=== PATIENT | male | born 1990 | race Caucasian/White ===

== ENCOUNTER 2017-03-12 09:59 | Day surgery (SDC) | payer OTHER ==
[2017-03-10 14:14] VITALS: BMI 31.7
[2017-03-12] MEDS ORDERED: PROPOFOL 20 ML ONE (10:49)
[2017-03-12] MEDS ORDERED: LIDOCAINE HCL/PF 2% SDV 5ML VIAL ONE (10:50)
[2017-03-12 12:06] VITALS: TEMP 97.6
[2017-03-12 12:48] VITALS: BP 112/56; PULSE 71
--- NOTE | 2017-03-14 12:51 | PATH ---
Surgical Pathology Report Patient Name: ANASTASIA NUGENT [facility]. Rec. #: [id number] /Age/Gender: 1990 (Age: 26) / M Account: [id number] Location: [facility]-ENDOSCOPY Taken: 03/12/2017 Received: 03/12/2017 Reported: 03/14/2017 Physicians: Gege Nuno M.D. Specimen(s) Received A: SECOND PORTION DUODENUM B: BX ANTRUM C: BX GE JUNCTION Clinical History Dyspepsia Rule out celiac disease, rule out gastritis, rule out GERD Final Diagnosis A. DUODENUM, SECOND PORTION, BIOPSY: DUODENAL MUCOSA WITH NO PATHOLOGIC CHANGES. NO HISTOLOGIC EVIDENCE OF GLUTEN SENSITIVE ENTEROPATHY (CELIAC SPRUE) IDENTIFIED. B. STOMACH, ANTRUM, BIOPSY: MILD CHRONIC GASTRITIS. IMMUNOSTAIN FOR H. PYLORI IS NEGATIVE. C. GE JUNCTION, BIOPSY: GASTRIC TYPE MUCOSA WITH CHRONIC INFLAMMATION. NO INTESTINAL METAPLASIA IDENTIFIED (NO PEREZ'S IDENTIFIED). Electronically Signed Maximo Herrera M.D. Gross Description A. Received in formalin, labeled "second portion of duodenum" are 3 freedman, irregular portions of soft tissue ranging from 0.2-0.4 cm. in greatest dimension. The specimens are submitted in toto in one cassette. B. Received in formalin, labeled "antrum" are 2 freedman, irregular portions of soft tissue measuring 0.3 and 0.4 cm. in greatest dimension. The specimens are submitted in toto in one cassette. C. Received in formalin, labeled "GE junction" are 2 freedman, irregular portions of soft tissue measuring 0.1 and 0.2 cm. in greatest dimension. The specimens are submitted in toto in one cassette. 03/13/201703/13/2017
== END 2017-03-12 12:45 | disposition home or self-care (01) ==
LOC: FASU-ENDO 09:59
PROVIDERS: ATTEND Internal Medicine Gastroenterology
PROC: 0DB58ZX Excision of Esophagus, Via Natural or Artificial Opening Endoscopic, Diagnostic (ICD-10-PCS; 2017-03-12)
PROC: 0DB98ZX Excision of Duodenum, Via Natural or Artificial Opening Endoscopic, Diagnostic (ICD-10-PCS; principal; 2017-03-12 11:29)
PROC: 0DB68ZX Excision of Stomach, Via Natural or Artificial Opening Endoscopic, Diagnostic (ICD-10-PCS; 2017-03-12 11:29)
DX: K29.50 Unspecified chronic gastritis without bleeding (principal); R10.13 Epigastric pain; K31.9 Disease of stomach and duodenum, unspecified
CPT/HCPCS: 88305-TC; 88342-TC

== ENCOUNTER 2017-07-01 22:05 | Emergency (ER) | payer BC, OTHER ==
[2017-07-01 22:25] VITALS: BP 125/88; PULSE 81; TEMP 97.7; BMI 31.0
[2017-07-01] MEDS ORDERED: TETANUS AND DIPHTHERIA TOXOID 0.5 ML DISP.SYRIN IM ONE (22:41)
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
--- NOTE | 2017-07-01 22:55 | PDOC ---
*Physical Exam - Vital Signs Last Vital Signs Temp Pulse Resp BP Pulse Ox 97.7 F 81 19 125/88 98 07/01/17 22:15 07/01/17 22:15 07/01/17 22:15 07/01/17 22:15 07/01/17 22:15 ED Treatment Course - LABORATORY CBC & Chemistry Diagram: 07/02/17 01:52 07/02/17 01:52 Medical Decision Making - Medical Decision Making 07/01/17 22:55 agree with care from JEOVANY Orozco *DC/Admit/Observation/Transfer Diagnosis at time of Disposition: Concussion, Scalp laceration, Closed rib fracture - Discharge Dispostion Disposition: HOME Condition at time of disposition: Good - Referrals Referrals: Nelson Washington MD [Staff Physician] - Call tomorrow Leland Fernandes [Primary Care Provider] - - Patient Instructions Printed Discharge Instructions: DI for Suture Removal, DI for Postconcussion Syndrome Additional Instructions: Follow up with a neurologist as soon as possible monitor for worsening/severe headache, nausea vomiting. Rest and relax as much as possible. Issue return to the emergency room in 10 days to have sofy removed. Keep the area of the sofy clean and dry you may wash hair in 24 hours. Do not use a comb. - Post Discharge Activity Forms/Work/School Notes: Back to Work
[2017-07-02 00:03] LABS: URINE APPEARANCE SLCLOUDY; URINE BILIRUBIN NEGATIVE (NEGATIVE); URINE BLOOD 3+ (NEGATIVE); URINE COLOR YELLOW; URINE GLUCOSE (UA) NEGATIVE (NEGATIVE); URINE KETONE NEGATIVE (NEGATIVE); URINE NITRITE NEGATIVE (NEGATIVE); URINE PROTEIN NEGATIVE (NEGATIVE); URINE UROBILINOGEN NEGATIVE mg/dL (0.2-1.0)
[2017-07-02] MEDS ORDERED: LIDOCAINE HCL 2% JELLY (30 ML/TUBE) TP ONE (00:06)
[2017-07-02] MEDS ORDERED: LIDOCAINE HCL 2% JELLY (5 ML/TUBE) ONE (00:08)
[2017-07-02] MEDS ORDERED: TETANUS AND DIPHTHERIA TOXOID 0.5 ML DISP.SYRIN IM ONE (00:13)
[2017-07-02 00:15] LABS: URINE MUCUS RARE; URINE RBC 93 /hpf (0-3); URINE WBC 1 /hpf (3-5)
[2017-07-02] MEDS ORDERED: LIDOCAINE HCL 2% (20ML MULTI-DOSE VIAL) NR ONE (00:37)
[2017-07-02] MEDS ORDERED: BACITRACIN 0.9 GM PACKET ONE (00:57)
[2017-07-02] MEDS ORDERED: ACETAMINOPHEN 500 MG TABLET (FP) PO ONE (01:26)
[2017-07-02] MEDS ORDERED: ACETAMINOPHEN 325 MG TABLET (FP) ONE (01:50)
[2017-07-02 02:02] LABS: BASOPHIL 0.5 % (0-2.0); EOSINOPHIL 0.3 % (0-4.5); MCHC 34.6 g/dl (32.0-35.9); MEAN CELL VOLUME 86.8 fl (80-96); MEAN PLT VOLUME 8.3 fl (7.5-11.1); NEUTROPHILS 80.9 % (42.8-82.8); PLATELET COUNT 174 K/MM3 (134-434); RDW 12.5 % (11.9-15.9); WHITE BLOOD COUNT 12.6 K/mm3 (4.0-10.0)
[2017-07-02 02:15] LABS: INR 1.1 (0.82-1.09); PROTHROMBIN TIME (PATIENT) 12.4 SEC (9.98-11.88)
[2017-07-02 02:30] LABS: ALBUMIN 4.4 g/dl (3.4-5.0); ALK PHOS 75 U/L (45-117); ANION GAP 7 (8-16); BILIRUBIN,TOTAL 0.6 mg/dL (0.2-1.0); CALCIUM 9.2 mg/dL (8.5-10.1); CO2 30 mmol/L (21-32); GLUCOSE,RANDOM 115 mg/dL (74-106); SGOT/AST 19 U/L (15-37); SGPT/ALT 41 U/L (12-78); TOT PROT 7.5 g/dl (6.4-8.2)
[2017-07-02 09:21] LABS: URINE LEUK ESTERASE Negative (NEGATIVE)
== END 2017-07-02 04:22 | disposition home or self-care (01) ==
LOC: JER 22:05
PROC: 3E0234Z Introduction of Serum, Toxoid and Vaccine into Muscle, Percutaneous Approach (ICD-10-PCS; principal; 2017-07-01)
PROC: 0HQ0XZZ Repair Scalp Skin, External Approach (ICD-10-PCS; 2017-07-01)
DX: S06.0X9A Concussion with loss of consciousness of unspecified duration, initial encounter (principal); S01.02XA Laceration with foreign body of scalp, initial encounter; V43.52XA Car driver injured in collision with other type car in traffic accident, initial encounter; Y92.412 Parkway as the place of occurrence of the external cause; Y93.89 Activity, other specified; Y99.8 Other external cause status; E03.9 Hypothyroidism, unspecified; K21.9 Gastro-esophageal reflux disease without esophagitis
CPT/HCPCS: 36415; 70450-TC; 71250-TC; 72125-TC; 74177-TC; 80053; 81003; 81015; 85025; 85610; 99281-25